=== PATIENT | male | born 1955 | race Caucasian/White ===

== ENCOUNTER 2024-04-27 10:58 | Inpatient (IN) | payer MEDICARE ==
[~2024-04-27] VITALS: Ht 170.2 cm; Wt 52.0 kg
[2024-04-27] VITALS (10 sets, daily range): BP systolic 81–115; BP diastolic 48–89; PULSE 65–79; RESP 15–19; TEMP 97.3–97.9; O2SAT 85–95
[~2024-04-27 10:58] MED LIST: ALBU2.5V7 NEB; ASPI81TA53 PO; ATOR20TA66 PO; CEFD300C3 PO; CLOP75TA34 PO; FERR142T13 PO; GABA-535 PO; LACT1CAP26 PO; METO-395 PO; MULT-25 PO; PANT40TA54 PO; PRED10TA23 PO
[2024-04-27] MEDS: normal saline 1000ML IV soln IV ONE (11:24)
[2024-04-27 11:32] LABS: BASOPHILS # (AUTO) 0.1 X10'3 (0-0.2); BASOPHILS % (AUTO) 0.4 % (0-1); EOSINOPHILS % (AUTO) 0.2 % (0-6); HEMATOCRIT 27.2 % (42.0-52.0); HEMOGLOBIN 8.5 g/dl (14.0-17.9); LYMPHOCYTES # (AUTO) 0.7 X10'3 (1.1-4.8); LYMPHOCYTES % (AUTO) 4.9 % (21-51); MEAN CORPUSCULAR HEMOGLOBIN 26.8 PG (27.0-31.0); MEAN CORPUSCULAR HGB CONC 31.1 g/dL (33.0-36.5); MEAN CORPUSCULAR VOLUME 86.1 FL (78-98); MEAN PLATELET VOLUME 8.4 FL (7.4-10.4); MONOCYTES # (AUTO) 0.5 X10'3 (0-0.9); MONOCYTES % (AUTO) 3.2 % (2-12); NEUTROPHILS # (AUTO) 13.6 X10'3 (1.8-7.7); NEUTROPHILS % (AUTO) 91.3 % (42-75); PLATELET COUNT 319 X10'3 (140-440); RED BLOOD COUNT 3.16 X10'6 (4.70-6.10); RED CELL DISTRIBUTION WIDTH 18.4 % (11.5-14.5); WHITE BLOOD COUNT 14.8 X10'3 (4.5-11.0)
[2024-04-27 11:48] LABS: ALBUMIN 1.5 G/DL (3.4-5.0); ANION GAP 7 (8-16); BLOOD UREA NITROGEN 50 MG/DL (7-18); BUN/CREATININE RATIO 21.3 (10.0-20.0); CALCIUM 7.2 MG/DL (8.5-10.1); CHLORIDE 104 MMOL/L (99-107); CREATININE 2.35 MG/DL (0.60-1.10); GLUCOSE 102 MG/DL (70-104); MAGNESIUM 1.4 MG/DL (1.5-2.4); POTASSIUM 3.2 MMOL/L (3.5-5.1); SODIUM 138 MMOL/L (135-145); TOTAL CARBON DIOXIDE 27.4 MMOL/L (24-32); eCRCL 22 ML/MIN; eGFR 28 ML/MIN
[2024-04-27 11:50] LABS: PRO BRAIN NATRIURETIC PEPTIDE > 30000 PG/ML (0-125)
[2024-04-27] MEDS: oxyCODONE/APAP 5-325mg tablet PO ONE (12:15)
[2024-04-27 13:18] LABS: OCCULT BLOOD STOOL POSITIVE (Neg)
[2024-04-27] MEDS: pantoprazole 40MG/NS 100ML BAG 100 ML IV ONE (14:15)
[2024-04-27] MEDS: pantoprazole 40 MG vial IV ONE (14:33)
[2024-04-27] MEDS: CefTRIAXone 2gm/D5W 50ml BAG 50 ML IV ONE (14:35)
[2024-04-27] MEDS ORDERED: ondansetron/PF 4mg/2ml inj IV PRN (15:00)
[2024-04-27] MEDS ORDERED: acetaminophen 650mg rectal suppository RC PRN (15:00)
[2024-04-27] MEDS ORDERED: acetaminophen 325mg tablet PO PRN (15:00)
[2024-04-27] MEDS ORDERED: magnesium hydroxide 30ml (MOM) UD suspension PO PRN (15:00)
[2024-04-27] MEDS ORDERED: mag hydrox/Alum hydrox/simeth 30ml oral suspension PO PRN (15:00)
[2024-04-27] MEDS ORDERED: potassium Cl 20 mEq SR tablet PO PRN ×2 (15:00)
[2024-04-27] MEDS ORDERED: ondansetron 4mg rapidly disintigrating tab PO PRN (15:00)
[2024-04-27] MEDS ORDERED: diphenhydrAMINE 25mg capsule PO PRN (15:00)
[2024-04-27] MEDS ORDERED: ipratropium/albuterol 3ml nebule NEB PRN (15:00)
[2024-04-27] MEDS ORDERED: magnesium Cl slow-release 64mg tablet PO PRN (15:00)
[2024-04-27] MEDS ORDERED: diphenhydrAMINE 50 mg/ml inj IV PRN (15:00)
[2024-04-27 15:58] LABS: APTT 23 SECONDS (22-32); INR 1.3 INR; PROTHROMBIN TIME 13.7 SECONDS (9.0-12.0)
[2024-04-27] MEDS: pantoprazole 40MG/NS 100ML BAG 100 ML IV SCH (16:00)
[2024-04-27 16:12] LABS: CREATINE KINASE 23 U/L (39-308); LIPASE 50 U/L (16-77); PHOSPHORUS 2.5 MG/DL (2.3-4.5); THYROID STIMULATING HORMONE 5.72 ulU/ml (0.34-4.50)
[2024-04-27] MEDS: tranexamic acid inj. 1,000 MG in normal saline 100ml IV soln 90 ML IV ONE (16:43)
[2024-04-27] MEDS: morphine 2 MG/ML inj. syringe IV PRN (16:54)
[2024-04-27] MEDS: docusate sod 100mg capsule PO SCH (20:00)
[2024-04-27] MEDS: K and/or MAG REPLACEMENT MC SCH (20:00)
[2024-04-27] MEDS: methylPREDNISolone sod succ/PF 40mg inj. IV SCH (20:21)
[2024-04-27] MEDS: magnesium 4gm in 100ml NS 100 ML IV PRN (21:12)
[2024-04-27] MEDS: potassium Cl 40MEQ/1/2NS 520ml 520 ML IV PRN (21:55)
[2024-04-27] MEDS: multivitamins, therapeutics tablet PO SCH (23:05)
[2024-04-27] MEDS: atorvastatin 20mg tablet PO SCH (23:05)
[2024-04-27] MEDS ORDERED: albuterol 2.5 MG/3 ML nebule NEB PRN (23:05)
[2024-04-27] MEDS: metoprolol succinate 25mg (24-HOUR) SR. Tablet PO SCH (23:05)
[2024-04-27] MEDS: normal saline 1000ml 1,000 ML IV SCH (23:33)
[2024-04-27] MEDS: temazepam 15mg capsule PO PRN (23:41)
[2024-04-27] MEDS: HYDROcodone/acetaminophen 5mg/325mg tablet PO PRN (23:42)
[2024-04-27] MEDS: aspirin 81mg, enteric-coated 1 TAB TABLET.DR PO ONE (23:42)
[2024-04-27] MEDS: clopidogrel 75mg tablet PO SCH (23:42)
[2024-04-28] VITALS (11 sets, daily range): BP systolic 85–108; BP diastolic 52–75; PULSE 65–77; RESP 16–24; TEMP 97–98.4; O2SAT 94–100
[2024-04-28] MEDS: magnesium 2GM in 50ml NS 50 ML IV PRN (01:15)
[2024-04-28 05:36] LABS: BASOPHILS % (AUTO) 0 % (0-1); EOSINOPHILS % (AUTO) 0 % (0-6); HEMATOCRIT 27.9 % (42.0-52.0); HEMOGLOBIN 8.9 g/dl (14.0-17.9); LYMPHOCYTES # (AUTO) 0.5 X10'3 (1.1-4.8); LYMPHOCYTES % (AUTO) 3.1 % (21-51); MEAN CORPUSCULAR HEMOGLOBIN 27.4 PG (27.0-31.0); MEAN CORPUSCULAR HGB CONC 32.1 g/dL (33.0-36.5); MEAN CORPUSCULAR VOLUME 85.5 FL (78-98); MEAN PLATELET VOLUME 8.7 FL (7.4-10.4); MONOCYTES # (AUTO) 0.2 X10'3 (0-0.9); MONOCYTES % (AUTO) 1.3 % (2-12); NEUTROPHILS # (AUTO) 15.3 X10'3 (1.8-7.7); NEUTROPHILS % (AUTO) 95.6 % (42-75); PLATELET COUNT 317 X10'3 (140-440); RED BLOOD COUNT 3.26 X10'6 (4.70-6.10); RED CELL DISTRIBUTION WIDTH 18.8 % (11.5-14.5); WHITE BLOOD COUNT 16.1 X10'3 (4.5-11.0)
[2024-04-28] MEDS: potassium Cl 20mEq in NS 1,000 ML IV SCH (05:46)
[2024-04-28 05:47] LABS: ALANINE AMINOTRANSFERASE 25 U/L (12-78); ALBUMIN 1.7 G/DL (3.4-5.0); ALBUMIN/GLOBULIN RATIO 0.4 (1.1-1.5); ALKALINE PHOSPHATASE 84 IU/L (46-116); ANION GAP 8 (8-16); ASPARTATE AMINO TRANSFERASE 22 U/L (10-37); BILIRUBIN,TOTAL 0.4 MG/DL (0.1-1.0); BLOOD UREA NITROGEN 55 MG/DL (7-18); BUN/CREATININE RATIO 20.1 (10.0-20.0); CALCIUM 7.7 MG/DL (8.5-10.1); CHLORIDE 105 MMOL/L (99-107); CREATININE 2.73 MG/DL (0.60-1.10); GLUCOSE 110 MG/DL (70-104); POTASSIUM 4.5 MMOL/L (3.5-5.1); SODIUM 139 MMOL/L (135-145); TOTAL CARBON DIOXIDE 25.8 MMOL/L (24-32); eCRCL 19 ML/MIN; eGFR 23 ML/MIN
[2024-04-28] MEDS: pantoprazole 40mg Tablet.DR PO SCH (08:41)
[2024-04-28] MEDS: CefTRIAXone/D5W-Rocephin 1gm 50 ML IV SCH (08:41)
[2024-04-28] MEDS: gabapentin 400mg capsule PO SCH (08:41)
[2024-04-28] MEDS: azithromycin/NS 500mg/250ml 250 ML IV SCH (08:41)
[2024-04-28] MEDS: aspirin 81mg tab.chew PO SCH (08:42)
[2024-04-28] MEDS: pantoprazole 40 MG vial IV SCH (21:04)
[2024-04-29] VITALS (10 sets, daily range): BP systolic 93–102; BP diastolic 60–69; PULSE 61–76; RESP 15–21; TEMP 97.6–98.2; O2SAT 93–100
[2024-04-29 06:45] LABS: BASOPHILS % (AUTO) 0.1 % (0-1); EOSINOPHILS # (AUTO) 0.1 X10'3 (0-0.9); EOSINOPHILS % (AUTO) 0.6 % (0-6); HEMATOCRIT 29.7 % (42.0-52.0); HEMOGLOBIN 9.5 g/dl (14.0-17.9); LYMPHOCYTES # (AUTO) 1.4 X10'3 (1.1-4.8); LYMPHOCYTES % (AUTO) 6.9 % (21-51); MEAN CORPUSCULAR HEMOGLOBIN 27.8 PG (27.0-31.0); MEAN PLATELET VOLUME 8.6 FL (7.4-10.4); MONOCYTES # (AUTO) 0.8 X10'3 (0-0.9); MONOCYTES % (AUTO) 4.3 % (2-12); NEUTROPHILS # (AUTO) 17.4 X10'3 (1.8-7.7); NEUTROPHILS % (AUTO) 88.1 % (42-75); PLATELET COUNT 386 X10'3 (140-440); RED BLOOD COUNT 3.42 X10'6 (4.70-6.10); RED CELL DISTRIBUTION WIDTH 19.6 % (11.5-14.5); WHITE BLOOD COUNT 19.7 X10'3 (4.5-11.0)
[2024-04-29 07:15] LABS: ALANINE AMINOTRANSFERASE 22 U/L (12-78); ALBUMIN 1.5 G/DL (3.4-5.0); ALBUMIN/GLOBULIN RATIO 0.4 (1.1-1.5); ALKALINE PHOSPHATASE 77 IU/L (46-116); ANION GAP 11 (8-16); ASPARTATE AMINO TRANSFERASE 17 U/L (10-37); BILIRUBIN,TOTAL 0.4 MG/DL (0.1-1.0); BLOOD UREA NITROGEN 60 MG/DL (7-18); BUN/CREATININE RATIO 20.2 (10.0-20.0); CALCIUM 7.5 MG/DL (8.5-10.1); CHLORIDE 103 MMOL/L (99-107); CREATININE 2.97 MG/DL (0.60-1.10); GLUCOSE 103 MG/DL (70-104); MAGNESIUM 2.6 MG/DL (1.5-2.4); POTASSIUM 4.4 MMOL/L (3.5-5.1); SODIUM 136 MMOL/L (135-145); TOTAL CARBON DIOXIDE 22.5 MMOL/L (24-32); TOTAL PROTEIN 5.5 G/DL (6.4-8.2); eCRCL 18 ML/MIN; eGFR 21 ML/MIN
[2024-04-29] MEDS ORDERED: methylPREDNISolone sod succ/PF 40mg inj. IV SCH (08:00)
[2024-04-29 15:10] LABS: C DIFF ANTIGEN NEGATIVE (NEGATIVE); C DIFF SPECIMEN=DIARRHEA? ACCEPTABLE; C DIFFICILE TOXINS A&B NEGATIVE (Neg)
[2024-04-29] MEDS: pantoprazole 40MG/NS 100ML BAG 100 ML IV SCH (16:59)
[2024-04-29] MEDS: nystatin 15 GM powder TP SCH (20:45)
[2024-04-30] VITALS (10 sets, daily range): BP systolic 95–104; BP diastolic 52–75; PULSE 65–81; RESP 16–24; TEMP 97.5–98.4; O2SAT 93–100
[2024-04-30 08:03] LABS: BASOPHILS % (AUTO) 0.1 % (0-1); EOSINOPHILS # (AUTO) 0.1 X10'3 (0-0.9); EOSINOPHILS % (AUTO) 1.6 % (0-6); HEMATOCRIT 26.3 % (42.0-52.0); HEMOGLOBIN 8.5 g/dl (14.0-17.9); LYMPHOCYTES # (AUTO) 0.8 X10'3 (1.1-4.8); LYMPHOCYTES % (AUTO) 8.9 % (21-51); MEAN CORPUSCULAR HEMOGLOBIN 27.9 PG (27.0-31.0); MEAN CORPUSCULAR HGB CONC 32.3 g/dL (33.0-36.5); MEAN CORPUSCULAR VOLUME 86.4 FL (78-98); MEAN PLATELET VOLUME 8.7 FL (7.4-10.4); MONOCYTES # (AUTO) 0.4 X10'3 (0-0.9); MONOCYTES % (AUTO) 5.2 % (2-12); NEUTROPHILS # (AUTO) 7.1 X10'3 (1.8-7.7); NEUTROPHILS % (AUTO) 84.2 % (42-75); PLATELET COUNT 274 X10'3 (140-440); RED BLOOD COUNT 3.05 X10'6 (4.70-6.10); RED CELL DISTRIBUTION WIDTH 20.1 % (11.5-14.5); WHITE BLOOD COUNT 8.5 X10'3 (4.5-11.0)
[2024-04-30] MEDS: gabapentin 400mg capsule PO SCH (08:04)
[2024-04-30 08:36] LABS: ALANINE AMINOTRANSFERASE 18 U/L (12-78); ALBUMIN 1.4 G/DL (3.4-5.0); ALBUMIN/GLOBULIN RATIO 0.4 (1.1-1.5); ALKALINE PHOSPHATASE 70 IU/L (46-116); ANION GAP 7 (8-16); ASPARTATE AMINO TRANSFERASE 19 U/L (10-37); BILIRUBIN,TOTAL 0.3 MG/DL (0.1-1.0); BLOOD UREA NITROGEN 43 MG/DL (7-18); BUN/CREATININE RATIO 21.2 (10.0-20.0); CALCIUM 7.2 MG/DL (8.5-10.1); CHLORIDE 108 MMOL/L (99-107); CREATININE 2.03 MG/DL (0.60-1.10); GLUCOSE 90 MG/DL (70-104); MAGNESIUM 2.1 MG/DL (1.5-2.4); POTASSIUM 4.2 MMOL/L (3.5-5.1); SODIUM 139 MMOL/L (135-145); TOTAL CARBON DIOXIDE 24.2 MMOL/L (24-32); TOTAL PROTEIN 5.2 G/DL (6.4-8.2); eCRCL 26 ML/MIN; eGFR 33 ML/MIN
[2024-04-30 09:10] LABS: ANISOCYTOSIS 3+; PLATELET ESTIMATE NORMAL
[2024-04-30 09:11] LABS: ELLIPTOCYTES FEW; TEAR DROP CELLS FEW
[2024-04-30] MEDS: pantoprazole 40mg Tablet.DR PO SCH (20:08)
[2024-05-01] VITALS (8 sets, daily range): BP systolic 86–100; BP diastolic 51–74; PULSE 55–90; RESP 12–18; TEMP 97–98.8; O2SAT 91–99
[2024-05-01] MEDS: HYDROcodone/acetaminophen 10/325mg tab PO ONE (02:47)
[2024-05-01] MEDS: LORazepam 0.5 MG tablet PO ONE (02:47)
[2024-05-01 08:14] LABS: BASOPHILS % (AUTO) 0.2 % (0-1); EOSINOPHILS # (AUTO) 0.1 X10'3 (0-0.9); EOSINOPHILS % (AUTO) 1.1 % (0-6); HEMATOCRIT 25.1 % (42.0-52.0); HEMOGLOBIN 8.3 g/dl (14.0-17.9); LYMPHOCYTES # (AUTO) 0.8 X10'3 (1.1-4.8); LYMPHOCYTES % (AUTO) 10.2 % (21-51); MEAN CORPUSCULAR HEMOGLOBIN 28.2 PG (27.0-31.0); MEAN CORPUSCULAR HGB CONC 32.9 g/dL (33.0-36.5); MEAN CORPUSCULAR VOLUME 85.8 FL (78-98); MEAN PLATELET VOLUME 8.8 FL (7.4-10.4); MONOCYTES # (AUTO) 0.4 X10'3 (0-0.9); MONOCYTES % (AUTO) 5.3 % (2-12); NEUTROPHILS # (AUTO) 6.6 X10'3 (1.8-7.7); NEUTROPHILS % (AUTO) 83.2 % (42-75); PLATELET COUNT 246 X10'3 (140-440); RED BLOOD COUNT 2.93 X10'6 (4.70-6.10); RED CELL DISTRIBUTION WIDTH 19.8 % (11.5-14.5); WHITE BLOOD COUNT 7.9 X10'3 (4.5-11.0)
[2024-05-01 08:28] LABS: ALANINE AMINOTRANSFERASE 19 U/L (12-78); ALBUMIN 1.4 G/DL (3.4-5.0); ALBUMIN/GLOBULIN RATIO 0.4 (1.1-1.5); ALKALINE PHOSPHATASE 73 IU/L (46-116); ANION GAP 6 (8-16); ASPARTATE AMINO TRANSFERASE 19 U/L (10-37); BILIRUBIN,TOTAL 0.4 MG/DL (0.1-1.0); BLOOD UREA NITROGEN 26 MG/DL (7-18); BUN/CREATININE RATIO 19.8 (10.0-20.0); CALCIUM 7.2 MG/DL (8.5-10.1); CHLORIDE 109 MMOL/L (99-107); CREATININE 1.31 MG/DL (0.60-1.10); GLUCOSE 84 MG/DL (70-104); MAGNESIUM 1.7 MG/DL (1.5-2.4); POTASSIUM 4.5 MMOL/L (3.5-5.1); SODIUM 139 MMOL/L (135-145); TOTAL PROTEIN 5.1 G/DL (6.4-8.2); eCRCL 40 ML/MIN; eGFR 54 ML/MIN
[2024-05-01 08:47] LABS: ANISOCYTOSIS 2+; ELLIPTOCYTES FEW; PLATELET ESTIMATE NORMAL; TEAR DROP CELLS FEW; TOTAL CELLS COUNTED 100
[2024-05-01] MEDS: lactose-reduced food (Ensure Enlive) - 237ml bottle PO SCH (13:00)
[2024-05-01] MEDS ORDERED: GABA-535 PO (14:08)
[2024-05-01] MEDS: morphine 2 MG/ML inj. syringe IV PRN (19:48)
[2024-05-02 02:00] VITALS: BP 94/48; PULSE 77; RESP 18; TEMP 97.8; O2SAT 95
[2024-05-02 06:00] VITALS: BP 107/67; PULSE 85; RESP 16; TEMP 98.6; O2SAT 94
[2024-05-02 07:39] LABS: BASOPHILS % (AUTO) 0.5 % (0-1); EOSINOPHILS # (AUTO) 0.1 X10'3 (0-0.9); EOSINOPHILS % (AUTO) 1.6 % (0-6); HEMATOCRIT 24.5 % (42.0-52.0); HEMOGLOBIN 8.1 g/dl (14.0-17.9); LYMPHOCYTES % (AUTO) 15.9 % (21-51); MEAN CORPUSCULAR HEMOGLOBIN 28.2 PG (27.0-31.0); MEAN CORPUSCULAR VOLUME 85.5 FL (78-98); MEAN PLATELET VOLUME 8.4 FL (7.4-10.4); MONOCYTES # (AUTO) 0.4 X10'3 (0-0.9); MONOCYTES % (AUTO) 6.3 % (2-12); NEUTROPHILS # (AUTO) 4.7 X10'3 (1.8-7.7); NEUTROPHILS % (AUTO) 75.7 % (42-75); PLATELET COUNT 211 X10'3 (140-440); RED BLOOD COUNT 2.87 X10'6 (4.70-6.10); RED CELL DISTRIBUTION WIDTH 20.5 % (11.5-14.5); WHITE BLOOD COUNT 6.2 X10'3 (4.5-11.0)
[2024-05-02 07:52] LABS: ALANINE AMINOTRANSFERASE 20 U/L (12-78); ALBUMIN 1.5 G/DL (3.4-5.0); ALBUMIN/GLOBULIN RATIO 0.4 (1.1-1.5); ALKALINE PHOSPHATASE 75 IU/L (46-116); ANION GAP 8 (8-16); ASPARTATE AMINO TRANSFERASE 21 U/L (10-37); BILIRUBIN,TOTAL 0.6 MG/DL (0.1-1.0); BLOOD UREA NITROGEN 19 MG/DL (7-18); BUN/CREATININE RATIO 17.3 (10.0-20.0); CALCIUM 7.2 MG/DL (8.5-10.1); CHLORIDE 108 MMOL/L (99-107); GLUCOSE 88 MG/DL (70-104); POTASSIUM 4.3 MMOL/L (3.5-5.1); SODIUM 139 MMOL/L (135-145); TOTAL CARBON DIOXIDE 23.5 MMOL/L (24-32); TOTAL PROTEIN 5.4 G/DL (6.4-8.2); eCRCL 47 ML/MIN; eGFR 67 ML/MIN
[2024-05-02 09:09] VITALS: PULSE 97; RESP 16; O2SAT 97
[2024-05-02 11:00] VITALS: BP 96/61; PULSE 97; RESP 16; TEMP 98.4; O2SAT 96
[2024-05-02] MEDS ORDERED: HYDR-3965 PO (11:48)
== END 2024-05-02 17:10 | disposition home health service (06) | DRG 380 ==
LOC: ER 10:59 → ED HOLD 15:24 → PCU 3S 19:44
PROVIDERS: ADMIT Family Medicine; ATTEND Family Medicine
PROC: 30233K1 Transfusion of Nonautologous Frozen Plasma into Peripheral Vein, Percutaneous Approach (ICD-10-PCS; principal; 2024-04-27)
DX: K22.11 Ulcer of esophagus with bleeding (principal); E43 Unspecified severe protein-calorie malnutrition; I21.A1 Myocardial infarction type 2; J44.1 Chronic obstructive pulmonary disease with (acute) exacerbation; N17.9 Acute kidney failure, unspecified; Z68.1 Body mass index [BMI] 19.9 or less, adult; I50.22 Chronic systolic (congestive) heart failure; D62 Acute posthemorrhagic anemia; R18.8 Other ascites; Z59.00 Homelessness unspecified; K92.1 Melena; E86.1 Hypovolemia; I95.9 Hypotension, unspecified; E78.5 Hyperlipidemia, unspecified; E87.6 Hypokalemia; K21.00 Gastro-esophageal reflux disease with esophagitis, without bleeding; M54.9 Dorsalgia, unspecified; G89.4 Chronic pain syndrome; I25.10 Atherosclerotic heart disease of native coronary artery without angina pectoris; E03.9 Hypothyroidism, unspecified; E83.42 Hypomagnesemia; N18.9 Chronic kidney disease, unspecified; K26.9 Duodenal ulcer, unspecified as acute or chronic, without hemorrhage or perforation; E88.09 Other disorders of plasma-protein metabolism, not elsewhere classified; N50.89 Other specified disorders of the male genital organs; Z79.82 Long term (current) use of aspirin; Z79.01 Long term (current) use of anticoagulants; Z79.899 Other long term (current) drug therapy; Z74.01 Bed confinement status; Z87.891 Personal history of nicotine dependence; Z95.5 Presence of coronary angioplasty implant and graft; I27.20 Pulmonary hypertension, unspecified; Z99.3 Dependence on wheelchair; R33.9 Retention of urine, unspecified
CPT/HCPCS: 36415; 36430; 71045; 80048; 80053; 82272; 82550; 83605; 83690; 83735; 83880; 84100; 84145; 84443; 84484; 85007; 85008; 85025; 85610; 85651; 85730; 86885; 86900; 86901; 87040; 87081; 87324; 87449; 93005; 94760; 96365; 96375; 97110; 97161; 99285; A4314; A4340; A4349; A6212; A6213; A6250; A6258; A6449; A6590; C9113; G0378; J0456; J0696; J2270; J2919; J3475; J3480; J3490; J7030; P9059